=== PATIENT | male | born 1945 | race African-American/Black ===

== ENCOUNTER 2018-06-02 18:52 | Emergency (ER) | payer OTHER ==
[2018-06-02] MEDS ORDERED: traMADol HCl 50 MG TAB ONE (19:58)
[2018-06-02] MEDS ORDERED: Acetaminophen 500 MG TAB ONE (19:59)
--- NOTE | 2018-06-02 20:15 | RAD ---
FOUR VIEWS OF THE LEFT KNEE: 06/02/18 COMPARISON: None. HISTORY: Injury, trauma, pain. FINDINGS: There is mild patellofemoral joint space narrowing. No knee joint effusion. Mild enthesophyte formati on at the insertion of the quadriceps tendon. There is no fracture or evidence of dislocation seen. V ascular calcifications noted posterior to the distal right femur. Mild medial and lateral compartment narrowing. IMPRESSION: Degenerative joint disease with no acute findings. POS: [facility]
--- NOTE | 2018-06-02 20:17 | RAD ---
FOUR VIEWS OF THE RIGHT KNEE 06/02/18 COMPARISON: None. HISTORY: Pain. FINDINGS: There is moderate patellofemoral joint space narrowing with posterior patellar osteophyte formation. No knee joint effusion, fracture, or evidence of dislocation. IMPRESSION: No acute findings. POS: [facility]
--- NOTE | 2018-06-02 21:08 | RAD ---
THREE VIEWS OF LUMBAR SPINE 06/02/18 COMPARISON: None. HISTORY: Fall, low back pain. FINDINGS: There is atherosclerotic calcification of the abdominal aorta. There is disc space narrowing with degenerative end plate change and anterior osteophyte formation at the L5-S1 level. There is no anterolisthesis or retrolisthesis. No acute osseous abnormality. IMPRESSION: Degenerative change at the L 5-S1 level. No acute fracture or dislocation seen. POS: [facility]
== END 2018-06-02 20:06 ==
LOC: NAV ERS 18:52
DX: M17.0 Bilateral primary osteoarthritis of knee (principal); M47.816 Spondylosis without myelopathy or radiculopathy, lumbar region; I10 Essential (primary) hypertension; Z87.891 Personal history of nicotine dependence; Z79.899 Other long term (current) drug therapy; Z79.82 Long term (current) use of aspirin
CPT/HCPCS: 72100